=== PATIENT | male | born 1990 | race Caucasian/White ===

== ENCOUNTER 2021-06-23 16:52 | Emergency (ER) | payer OTHER ==
[~2021-06-23] VITALS: Ht 185.4 cm; Wt 117.9 kg
[2021-06-23] MEDS ORDERED: MIRAPEX ER0.375 MG PO (17:08)
[2021-06-23] MEDS ORDERED: CARDIZEM CD360 MG PO (17:08)
[2021-06-23] MEDS ORDERED: STRATTERA18 MG PO (17:09)
[2021-06-23] MEDS ORDERED: IMITREX100 MG PO (17:10)
[2021-06-23] MEDS ORDERED: CLONAZEPAM1 MG PO (17:10)
== END 2021-06-23 20:08 | disposition home or self-care (01) ==
LOC: ER 16:52
DX: R10.30 Lower abdominal pain, unspecified (principal); K59.00 Constipation, unspecified; K76.0 Fatty (change of) liver, not elsewhere classified

== ENCOUNTER 2022-12-07 14:56 | Outpatient (CLI) | payer OTHER ==
[~2022-12-07 14:56] MED LIST: CARDIZEM CD360 MG PO; CLONAZEPAM1 MG PO; IMITREX100 MG PO; MIRAPEX ER0.375 MG PO; STRATTERA18 MG PO
== END 2022-12-07 15:10 | disposition home or self-care (01) ==
LOC: RAD 14:56
PROVIDERS: ATTEND General Practice
DX: N20.2 Calculus of kidney with calculus of ureter (principal)

== ENCOUNTER → 2022-12-18 | Outpatient (CLI) | payer OTHER | END | disposition home or self-care (01) | LOC: MRI 09:59 | PROVIDERS: ATTEND General Practice | DX: D35.2 Benign neoplasm of pituitary gland (principal); E29.1 Testicular hypofunction | CPT/HCPCS: 70553 ==

== ENCOUNTER 2023-01-29 07:03 | Emergency (ER) | payer OTHER ==
[~2023-01-29] VITALS: Ht 185.4 cm; Wt 114.3 kg
[2023-01-29] MEDS ORDERED: ZESTRIL40 M1 (07:27)
== END 2023-01-29 12:22 | disposition home or self-care (01) ==
LOC: ER 07:03
DX: M79.605 Pain in left leg (principal); M51.26 Other intervertebral disc displacement, lumbar region; I10 Essential (primary) hypertension